=== PATIENT | male | born 1960 | race Caucasian/White ===

== ENCOUNTER 2024-06-04 18:08 | Emergency (ER) | payer BC ==
[2024-06-04 19:10] LABS: #Basophils 0.04 10x3/uL (0.0-0.2); #Eosinophils 0.42 10x3/uL (0.0-0.5); #Monocytes 0.68 10x3/uL (0.0-1.1); #Neutrophils 2.44 10x3/uL (1.5-8.4); %Basophils 0.7 % (0.0-2.0); %Eosinophils 7.4 % (0.0-6.0); %Lymphocytes 36.5 % (18.0-47.0); %Neutrophils 43.2 % (40.0-75.0); Hematocrit 38.2 % (38.8-50.0); Hemoglobin 12.7 g/dL (13.5-17.5); Mean Corpuscular HGB CONC 33.2 g/dL (32.0-36.0); Mean Corpuscular Hemoglobin 30.1 pg (27.0-33.0); Mean Corpuscular Volume 90.5 fL (81.2-95.1); Mean Platelet Volume 11.2 fL (7.4-10.4); Platelet Count 163 10x3/uL (150-450); RBC Distribution Width 13.8 % (11.5-14.5); Red Blood Cell (RBC) Count 4.22 10x6/uL (4.32-5.72); White Blood Cell (WBC) Count 5.7 10x3/uL (3.5-10.5)
[2024-06-04 19:24] LABS: ALT (SGPT) 44 U/L (8-55); AST (SGOT) 27 U/L (5-34); Albumin 3.7 g/dL (3.4-4.8); Alkaline Phosphatase 79 U/L (40-110); Anion Gap 14 mmol/L (10-20); BUN (Urea Nitrogen) 15 mg/dL (8.4-25.7); Bilirubin, Total 0.3 mg/dL (0.2-1.2); Calc. Creatinine Clearance 0 mL/min (70-130); Calcium 9.4 mg/dL (7.8-10.44); Carbon Dioxide 28 mmol/L (23-31); Chloride 105 mmol/L (98-107); Estimated GFR 95; Glucose 88 mg/dL (80-115); Potassium 4.5 mmol/L (3.5-5.1); Protein, Total 6.7 g/dL (5.8-8.1); Sodium 142 mmol/L (136-145)
[2024-06-04 19:30] LABS: Troponin I Less than 0.010 ng/mL (< 0.028)
== END 2024-06-04 20:30 | disposition home or self-care (01) ==
LOC: CSHERS 18:08
DX: R07.9 Chest pain, unspecified (principal)
CPT/HCPCS: 36415; 71045; 80053; 84484; 85025; 93005